=== PATIENT | male | born 1995 | race Caucasian/White ===

== ENCOUNTER 2019-05-02 03:50 | Emergency (ER) | payer OTHER, BC, MEDICAID ==
[2019-05-02] MEDS ORDERED: Ketorolac 60 MG/2 ML SDV IM ONE (04:26)
[2019-05-02] MEDS ORDERED: Cyclobenzaprine 10 MG Tab PO ONE (04:26)
--- NOTE | 2019-05-02 04:33 | EDM.PDOC ---
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 He felt fine when work started to night, but then a couple hours ago the left side of his chest and rib region started to hurt with movement. He did not take any meds. left chest, left lateral ribs Pain Score (Numeric/FACES): 5 - Related Data Allergies Allergy/AdvReac Type Severity Reaction Status Date / Time No Known Allergies Allergy Verified 05/02/19 04:20 Home Meds: Home Meds Albuterol Sulfate [Albuterol Sulfate Hfa] 2 puff INH Q4H PRN 05/02/19 [History] Cyclobenzaprine [Flexeril] 10 mg PO TID PRN #15 tab 05/02/19 [Rx] Review of Systems - Review of Systems Review Of Systems: See Below Constitutional: Reports: No Symptoms Eyes: Reports: No Symptoms Ears: Reports: No Symptoms Nose: Reports: No Symptoms Mouth/Throat: Reports: No Symptoms Respiratory: Reports: No Symptoms Cardiovascular: Reports: Chest Pain GI/Abdominal: Reports: No Symptoms Genitourinary: Reports: No Symptoms Musculoskeletal: Reports: Other (Rib Pain) ED EXAM, GENERAL - Physical Exam Exam: See Below General Appearance: Alert, WD/WN, No Apparent Distress (Young Adult Male) Ears: Hearing Grossly Normal Nose: Normal Inspection Throat/Mouth: Normal Voice, No Airway Compromise Head: Atraumatic, Normocephalic Neck: Normal Inspection Respiratory/Chest: No Respiratory Distress, Lungs Clear, Normal Breath Sounds, Other (+ Tenderness palpated over the left anterior chest wall and anterior rib region) Cardiovascular: Normal Peripheral Pulses, Regular Rate, Rhythm, No Edema, No Murmur GI/Abdominal: Normal Bowel Sounds, Soft, Non-Tender (Male) Exam: Deferred Rectal (Males) Exam: Deferred Back Exam: Normal Inspection, Full Range of Motion Extremities: Normal Inspection, Normal Range of Motion, Normal Capillary Refill Neurological: Alert, Oriented, CN II-XII Intact, Normal Cognition, Normal Reflexes, No Motor/Sensory Deficits Psychiatric: Normal Affect, Normal Mood Skin Exam: Warm, Dry, Intact, Normal Color, No Rash Lymphatic: No Adenopathy EKG INTERPRETATION EKG Date: 05/02/19 Time: 03:53 Rhythm: NSR Rate (Beats/Min): 82 [place]: Normal P-Wave: Present QRS: Normal ST-T: Normal QT: Normal EKG Interpretation Comments: Sinus Rhythm Course - Vital Signs Text/Narrative:: 0425 The patient was seen by the SLEEVE TAILOR. Labs and EKG ordered. Toradol 60 mg IM and Cyclobenzaprine 10mg po ordered for chest wall pain. 0530 Labs reviewed, Pain resolved. Discussed with patient. Discharge instructions given and the patient was sent home in stable condition. Last Recorded V/S: Last Vital Signs Temp 37.0 C 05/02/19 03:50 Pulse 73 05/02/19 05:13 Resp 16 05/02/19 05:13 BP 118/81 05/02/19 05:13 Pulse Ox 97 05/02/19 05:13 - Orders/Labs/Meds Orders: Active Orders 24 hr Category Date Time Status EKG Documentation Completion [RC] STAT Care 05/02/19 04:46 Ordered Labs: Laboratory Tests 05/02/19 05/02/19 05/02/19 Range/Units 04:54 04:54 04:57 WBC 13.9 H (4.0-10.0) x10^3/uL RBC 5.32 (4.5-6.0) x10^6/uL Hgb 15.9 (14.0-18.0) g/dL Hct 45.0 (40.0-52.0) % MCV 84.6 (78.0-93.0) fL MCH 29.9 (26.0-32.0) pg MCHC 35.3 (32.0-36.0) g/dL RDW Coeff of Shonna 13.0 (10.0-15.0) % Plt Count 271 (130-400) x10^3/uL Neut % (Auto) 58.9 (50.0-80.0) % Lymph % (Auto) 26.7 (25.0-50.0) % [place] % (Auto) 10.6 (2.0-11.0) % Eos % (Auto) 3.4 (0.0-4.0) % Baso % (Auto) 0.4 (0.2-1.2) % Sodium 139 (136-145) mmol/L Potassium 3.7 (3.5-5.1) mmol/L Chloride 101 (98-107) mmol/L Carbon Dioxide 26 (21-32) mmol/L Anion Gap 15.7 (10-20) mmol/L BUN 17 (7-18) mg/dL Creatinine 1.1 (0.70-1.30) mg/dL Est Cr Clr Drug Dosing 100.18 mL/min Estimated GFR (MDRD) > 60 Glucose 124 H (74-106) mg/dL Calcium 8.9 (8.5-10.1) mg/dL Corrected Calcium 8.90 (8.5-10.1) mg/dL Total Bilirubin 0.5 (0.2-1.0) mg/dL AST 27 (15-37) U/L ALT 38 (16-63) U/L Alkaline Phosphatase 102 (46-116) U/L POC Troponin I 0.01 (0.00-0.08) ng/mL Total Protein 7.8 (6.4-8.2) g/dL Albumin 4.0 (3.4-5.0) g/dL Globulin 3.8 Albumin/Globulin Ratio 1.05 Meds: Medications Discontinued Medications Generic Name Dose Route Start Last Admin Trade Name Freq PRN Reason Stop Dose Admin Cyclobenzaprine HCl 10 mg 05/02/19 04:26 05/02/19 04:40 Flexeril PO 05/02/19 04:27 10 mg ONETIME ONE Administration Ketorolac Tromethamine 60 mg 05/02/19 04:26 05/02/19 04:42 Toradol IM 05/02/19 04:27 60 mg ONETIME ONE Administration Departure - Departure Time of Disposition: 05:29 Disposition: Home, Self-Care 01 Condition: Good Clinical Impression: Acute chest wall pain, Musculoskeletal chest pain - Discharge Information *PRESCRIPTION DRUG MONITORING PROGRAM REVIEWED*: Not Applicable *COPY OF PRESCRIPTION DRUG MONITORING REPORT IN PATIENT PRAVEENA: Not Applicable Prescriptions: Cyclobenzaprine [Flexeril] 10 mg PO TID PRN #15 tab PRN Reason: Muscle Spasm Instructions: Chest Wall Pain Referrals: PCP,Unobtain [Ordering Only Provider] - Forms: ED Return to Work/School Form Additional Instructions: -Ibuprofen 200mg 3 tablets oral every 6 hours x 5-7 days (Over the counter med) -Acetaminophen 325mg 3 tablets oral every 6 hours as needed (Over the counter med) -Cyclobenzaprine 10mg oral very 8 hours as needed for muscle spasms #15(Rx) -Apply ice/heat to chest/rib region as needed for comfort -Rest. Increase activity as able. -No work for 48 hours, then if you still feel the discomfort follow up with your PCP for further recheck. -Return to the ER as needed Sepsis Event Note - Evaluation Sepsis Screening Result: No Definite Risk - Focused Exam Vital Signs: Vital Signs Temp Pulse Resp BP Pulse Ox 05/02/19 05:13 73 16 118/81 97 05/02/19 03:50 37.0 C 89 20 141/77 H 96 Date Exam was Performed: 05/02/19 Time Exam was Performed: 05:28 - My Orders Last 24 Hours: My Active Orders 05/02/19 04:46 EKG Documentation Completion [RC] STAT - Assessment/Plan Last 24 Hours: My Active Orders 05/02/19 04:46 EKG Documentation Completion [RC] STAT
[2019-05-02 05:23] LABS: CHLORIDE,CL 101 mmol/L (98-107); SODIUM,NA 139 mmol/L (136-145)
[2019-05-02 05:24] LABS: ANION GAP 15.7 mmol/L (10-20)
== END 2019-05-02 05:40 | disposition home or self-care (01) ==
LOC: VM.ED 03:50
DX: R07.89 Other chest pain (principal)
CPT/HCPCS: 36415; 80053; 84484; 85025; 93005; 96372; 99285; A9270; J1885

== ENCOUNTER 2020-06-28 00:48 | Observation (INO) | payer BC, MEDICAID, OTHER ==
[2020-06-28 01:30] LABS: CHLORIDE,CL 105 mmol/L (98-107); SODIUM,NA 142 mmol/L (136-145)
[2020-06-28 01:31] LABS: ACETAMINOPHEN 0 ug/ml (10-30); ANION GAP 14.1 mmol/L (5-15)
[2020-06-28 01:37] LABS: BUPRENORPHINE,URINE NEGATIVE (NEGATIVE); MARIJUANA,URINE POSITIVE (NEGATIVE); METHYLENEDIOXYMETHAMP,UR NEGATIVE (NEGATIVE); PHENCYCLIDINE,URINE NEGATIVE (NEGATIVE)
--- NOTE | 2020-06-28 02:18 | EDM.PDOC ---
ED HPI GENERAL MEDICAL PROBLEM - General Chief Complaint: Behavioral/Psych Time Seen by Provider: 06/28/20 02:03 Source of Information: Reports: Patient, Police - History of Present Illness INITIAL COMMENTS - FREE TEXT/NARRATIVE: Vincent is a 24 y/o male who is brought to the ER for concerns of suicide ideation. Apparently his cat got outside tonight and this caused him a great deal of distress. He does admit to drinking alcohol tonight. He got very upset when the cat got out and called his sister and did start saying some things to her on the phone like he would maybe hurt himself, but he does not think he would ever go through with anything like that. He was previously on antidepressants a couple years ago, but stopped taking them. 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 - Related Data Allergies Allergy/AdvReac Type Severity Reaction Status Date / Time No Known Allergies Allergy Verified 06/28/20 01:23 Past Medical History Respiratory History: Reports: Asthma Psychiatric History: Reports: Depression Social & Family History - Tobacco Use Tobacco Use Status *Q: Never Tobacco User - Alcohol Use Days Per Week of Alcohol Use: 7 Number of Drinks Per Day: 6 Total Drinks Per Week: 42 Date of Last Drink: 06/27/20 Time of Last Drink: 22:00 - Recreational Drug Use Recreational Drug Use: No Review of Systems - Review of Systems Review Of Systems: See Below Constitutional: Reports: No Symptoms Eyes: Reports: No Symptoms Ears: Reports: No Symptoms Nose: Reports: No Symptoms Mouth/Throat: Reports: No Symptoms Respiratory: Reports: No Symptoms Cardiovascular: Reports: No Symptoms GI/Abdominal: Reports: No Symptoms Genitourinary: Reports: No Symptoms Musculoskeletal: Reports: No Symptoms Skin: Reports: No Symptoms Neurological: Reports: No Symptoms Psychiatric: Reports: Depression ED EXAM, GENERAL - Physical Exam Exam: See Below General Appearance: Alert, WD/WN, No Apparent Distress (Adult male, he a bit teary-eyed when talking, but cooperative.) Eye Exam: Bilateral Eye: PERRL Ears: Hearing Grossly Normal Nose: Normal Inspection Throat/Mouth: Normal Inspection, Normal Lips, Normal Voice Head: Atraumatic, Normocephalic Neck: Supple Respiratory/Chest: No Respiratory Distress, Lungs Clear, Chest Non-Tender Cardiovascular: Normal Peripheral Pulses, Regular Rate, Rhythm GI/Abdominal: Normal Bowel Sounds, Soft (Male) Exam: Deferred Rectal (Males) Exam: Deferred Extremities: Normal Inspection, Normal Range of Motion, Normal Capillary Refill Neurological: Alert, Oriented, CN II-XII Intact, Normal Cognition Psychiatric: Depressed Mood, Tearful Skin Exam: Warm, Dry, Intact, Normal Color, No Rash Course - Vital Signs Text/Narrative:: The patient was seen by the AUTO TUNE UP MECHANIC. Labs ordered. Note ECHJ=981. CBC WBC=20.7, CMP neg. UDS +THC. Patient denies plan to hurt himself at this time, but will admit him to observation and have Coding Validator see him in the AM to re-assess after he is sober. Patient cooperative and in agreement to stay at hospital and then be seen in AM after sober. Last Recorded V/S: Last Vital Signs Temp 36.7 C 06/28/20 01:04 Pulse 85 06/28/20 01:04 Resp 18 06/28/20 01:04 BP 120/83 06/28/20 01:04 Pulse Ox 96 06/28/20 01:04 - Orders/Labs/Meds Orders: Active Orders 24 hr Category Date Time Status CORONAVIRUS COVID-19 RAPID [MOLEC] Stat Lab 06/28/20 02:18 Ordered SALICYLATE [REF] Stat Lab 06/28/20 01:05 Received Labs: Laboratory Tests 06/28/20 06/28/20 06/28/20 Range/Units 01:05 01:05 01:36 WBC 20.7 H* (4.0-10.0) x10^3/uL RBC 5.39 (4.5-6.0) x10^6/uL Hgb 16.2 (14.0-18.0) g/dL Hct 46.5 (40.0-52.0) % MCV 86.3 (78.0-93.0) fL MCH 30.1 (26.0-32.0) pg MCHC 34.8 (32.0-36.0) g/dL RDW Coeff of Shonna 13.6 (10.0-15.0) % Plt Count 280 (130-400) x10^3/uL Add Manual Diff Yes Neutrophils % (Manual) 54 (50-80) % Band Neutrophils % 1 (0-6) % Lymphocytes % (Manual) 33 (25-50) % Monocytes % (Manual) 10 (2-11) % Eosinophils % (Manual) 2 (0-4) % Platelet Estimate Adequate Sodium 142 (136-145) mmol/L Potassium 4.1 (3.5-5.1) mmol/L Chloride 105 (98-107) mmol/L Carbon Dioxide 27 (21-32) mmol/L Anion Gap 14.1 (5-15) mmol/L BUN 14 (7-18) mg/dL Creatinine 1.1 (0.70-1.30) mg/dL Est Cr Clr Drug Dosing 92.64 mL/min Estimated GFR (MDRD) > 60 Glucose 96 (70-99) mg/dL Calcium 8.6 (8.5-10.1) mg/dL Corrected Calcium 8.04 L (8.5-10.1) mg/dL Total Bilirubin 0.3 (0.2-1.0) mg/dL AST 25 (15-37) U/L ALT 40 (16-63) U/L Alkaline Phosphatase 90 (46-116) U/L Total Protein 8.7 H (6.4-8.2) g/dL Albumin 4.7 (3.4-5.0) g/dL Globulin 4.0 Albumin/Globulin Ratio 1.18 Urine Opiates Screen Negative (NEGATIVE) Ur Buprenorphine Scrn Negative (NEGATIVE) Ur Oxycodone Screen Negative (NEGATIVE) Ur EDDP (Meth Metab) Negative (NEGATIVE) Urine Methadone Screen Negative (NEGATIVE) Acetaminophen 0 L (10-30) ug/ml Ur Barbituates Screen Negative (NEGATIVE) Ur Tricyclics Screen Negative (NEGATIVE) Ur Phencyclidine Scrn Negative (NEGATIVE) Ur Amphetamines Screen Negative (NEGATIVE) U Methamphetamines Scrn Negative (NEGATIVE) Urine MDMA Screen Negative (NEGATIVE) U Benzodiazepines Scrn Negative (NEGATIVE) Urine Cocaine Screen Negative (NEGATIVE) U Marijuana (THC) Screen Positive H (NEGATIVE) Ethyl Alcohol 256 H (0-3) mg/dL Departure - Departure Time of Disposition: 02:25 Disposition: Refer to Observation Condition: Good Clinical Impression: Suicide ideation Alcohol intoxication Qualifiers: Complication of substance-induced condition: uncomplicated Qualified Code(s): F10.920 - Alcohol use, unspecified with intoxication, uncomplicated - Discharge Information Forms: ED Department Discharge Sepsis Event Note (ED) - Evaluation Sepsis Screening Result: No Definite Risk - Focused Exam Vital Signs: Vital Signs Temp Pulse Resp BP Pulse Ox 06/28/20 01:04 36.7 C 85 18 120/83 96 - My Orders Last 24 Hours: My Active Orders 06/28/20 01:05 SALICYLATE [REF] Stat 06/28/20 02:18 CORONAVIRUS COVID-19 RAPID [MOLEC] Stat - Assessment/Plan Admission H&P: Please use this note as an admission H&P Last 24 Hours: My Active Orders 06/28/20 01:05 SALICYLATE [REF] Stat 06/28/20 02:18 CORONAVIRUS COVID-19 RAPID [MOLEC] Stat Assessment:: 1)Alcohol Intoxication 2)Suicidal Ideation Plan: -Will admit to Observation tonight on Suicide Precautions -Repeat Labs in the AM -Will have Concept Artist see the patient in the AM when he is sober
--- NOTE | 2020-06-28 09:08 | PCM.DCSUM1 ---
Discharge Summary - Hospital Course Free Text/Narrative:: Pt. is feeling better this AM. He is requesting discharge, as he needs to go to work. He adamantly denies any current suicidal or homicidal ideation. He states that he was "overreacting" over the loss of his cat. He denies any problems with depression. He previously had been on antidepressants but stopped taking them some time ago, without complications. Pt. denies any previous suicide attempts in plan in the past. He states that he has many friends, family, and job and looks forward to life. He refuses any referral for mental health at this time. He denies any chest pain, shortness of breath, lightheadedness, fever or chills. Diagnosis: Stroke: No - Discharge Data Discharge Date: 06/28/20 Discharge Disposition: Home, Self-Care 01 Condition: Good - Referral to Home Health Primary Care Physician: PCP None - Discharge Diagnosis/Problem(s) (1) Alcohol intoxication SNOMED Code(s): 93342582 ICD Code: F10.929 - ALCOHOL USE, UNSPECIFIED WITH INTOXICATION, UNSPECIFIED Status: Acute Current Visit: No Qualifiers: Complication of substance-induced condition: uncomplicated Qualified Code(s): F10.920 - Alcohol use, unspecified with intoxication, uncomplicated (2) Suicide ideation SNOMED Code(s): 5289795 ICD Code: R45.851 - SUICIDAL IDEATIONS Status: Acute Current Visit: No - Patient Summary/Data Consults: Consultations 06/28/20 02:43 Consult to Case Management/Analytics Intern [CONS] Routine - Discharge Plan Forms: ED Department Discharge Referrals: PCP,None [Primary Care Provider] - - Discharge Summary/Plan Comment DC Time >30 min.: Yes Discharge Summary/Plan Comment: Pt. contracted for safety. He is anxious to be discharged, as he has to go to work. He was informed to return to ER if he has any acute suicidal ideation. He was given the number for the [facility] crisis line. All questions were answered. - General Info Date of Service: 06/28/20 Functional Status: Reports: Pain Controlled - Review of Systems General: Reports: No Symptoms HEENT: Reports: No Symptoms Pulmonary: Reports: No Symptoms Cardiovascular: Reports: No Symptoms Gastrointestinal: Reports: No Symptoms Genitourinary: Reports: No Symptoms Musculoskeletal: Reports: No Symptoms Skin: Reports: No Symptoms Neurological: Reports: No Symptoms Psychiatric: Reports: Other (See HPI) - Patient Data Vitals - Most Recent: Last Vital Signs Temp 37.0 C 06/28/20 06:00 Pulse 85 06/28/20 06:00 Resp 17 06/28/20 06:00 BP 106/47 L 06/28/20 06:00 Pulse Ox 92 L 06/28/20 06:00 Weight - Most Recent: 76.204 kg I&O - Last 24 hours: Intake & Output 06/27/20 06/28/20 06/28/20 22:59 06:59 14:59 Intake Total 120 Balance 120 Lab Results - Last 24 hrs: Laboratory Results - last 24 hr 06/28/20 06/28/20 06/28/20 Range/Units 01:05 01:05 01:36 WBC 20.7 H* (4.0-10.0) x10^3/uL RBC 5.39 (4.5-6.0) x10^6/uL Hgb 16.2 (14.0-18.0) g/dL Hct 46.5 (40.0-52.0) % MCV 86.3 (78.0-93.0) fL MCH 30.1 (26.0-32.0) pg MCHC 34.8 (32.0-36.0) g/dL RDW Coeff of Shonna 13.6 (10.0-15.0) % Plt Count 280 (130-400) x10^3/uL Add Manual Diff Yes Neutrophils % (Manual) 54 (50-80) % Band Neutrophils % 1 (0-6) % Lymphocytes % (Manual) 33 (25-50) % Monocytes % (Manual) 10 (2-11) % Eosinophils % (Manual) 2 (0-4) % Platelet Estimate Adequate Sodium 142 (136-145) mmol/L Potassium 4.1 (3.5-5.1) mmol/L Chloride 105 (98-107) mmol/L Carbon Dioxide 27 (21-32) mmol/L Anion Gap 14.1 (5-15) mmol/L BUN 14 (7-18) mg/dL Creatinine 1.1 (0.70-1.30) mg/dL Est Cr Clr Drug Dosing 92.64 mL/min Estimated GFR (MDRD) > 60 Glucose 96 (70-99) mg/dL Calcium 8.6 (8.5-10.1) mg/dL Corrected Calcium 8.04 L (8.5-10.1) mg/dL Total Bilirubin 0.3 (0.2-1.0) mg/dL AST 25 (15-37) U/L ALT 40 (16-63) U/L Alkaline Phosphatase 90 (46-116) U/L Total Protein 8.7 H (6.4-8.2) g/dL Albumin 4.7 (3.4-5.0) g/dL Globulin 4.0 Albumin/Globulin Ratio 1.18 Urine Opiates Screen Negative (NEGATIVE) Ur Buprenorphine Scrn Negative (NEGATIVE) Ur Oxycodone Screen Negative (NEGATIVE) Ur EDDP (Meth Metab) Negative (NEGATIVE) Urine Methadone Screen Negative (NEGATIVE) Acetaminophen 0 L (10-30) ug/ml Ur Barbituates Screen Negative (NEGATIVE) Ur Tricyclics Screen Negative (NEGATIVE) Ur Phencyclidine Scrn Negative (NEGATIVE) Ur Amphetamines Screen Negative (NEGATIVE) U Methamphetamines Scrn Negative (NEGATIVE) Urine MDMA Screen Negative (NEGATIVE) U Benzodiazepines Scrn Negative (NEGATIVE) Urine Cocaine Screen Negative (NEGATIVE) U Marijuana (THC) Screen Positive H (NEGATIVE) Ethyl Alcohol 256 H (0-3) mg/dL SARS CoV-2 RNA Rapid GERBER (NEGATIVE) 06/28/20 Range/Units 02:20 WBC (4.0-10.0) x10^3/uL RBC (4.5-6.0) x10^6/uL Hgb (14.0-18.0) g/dL Hct (40.0-52.0) % MCV (78.0-93.0) fL MCH (26.0-32.0) pg MCHC (32.0-36.0) g/dL RDW Coeff of Shonna (10.0-15.0) % Plt Count (130-400) x10^3/uL Add Manual Diff Neutrophils % (Manual) (50-80) % Band Neutrophils % (0-6) % Lymphocytes % (Manual) (25-50) % Monocytes % (Manual) (2-11) % Eosinophils % (Manual) (0-4) % Platelet Estimate Sodium (136-145) mmol/L Potassium (3.5-5.1) mmol/L Chloride (98-107) mmol/L Carbon Dioxide (21-32) mmol/L Anion Gap (5-15) mmol/L BUN (7-18) mg/dL Creatinine (0.70-1.30) mg/dL Est Cr Clr Drug Dosing mL/min Estimated GFR (MDRD) Glucose (70-99) mg/dL Calcium (8.5-10.1) mg/dL Corrected Calcium (8.5-10.1) mg/dL Total Bilirubin (0.2-1.0) mg/dL AST (15-37) U/L ALT (16-63) U/L Alkaline Phosphatase (46-116) U/L Total Protein (6.4-8.2) g/dL Albumin (3.4-5.0) g/dL Globulin Albumin/Globulin Ratio Urine Opiates Screen (NEGATIVE) Ur Buprenorphine Scrn (NEGATIVE) Ur Oxycodone Screen (NEGATIVE) Ur EDDP (Meth Metab) (NEGATIVE) Urine Methadone Screen (NEGATIVE) Acetaminophen (10-30) ug/ml Ur Barbituates Screen (NEGATIVE) Ur Tricyclics Screen (NEGATIVE) Ur Phencyclidine Scrn (NEGATIVE) Ur Amphetamines Screen (NEGATIVE) U Methamphetamines Scrn (NEGATIVE) Urine MDMA Screen (NEGATIVE) U Benzodiazepines Scrn (NEGATIVE) Urine Cocaine Screen (NEGATIVE) U Marijuana (THC) Screen (NEGATIVE) Ethyl Alcohol (0-3) mg/dL SARS CoV-2 RNA Rapid GERBER Negative (NEGATIVE) - Exam General: Reports: Alert, Oriented HEENT: Reports: Pupils Equal, Pupils Reactive, EOMI, Mucous Membr. Moist/[place] Skin: Reports: Warm, Dry, Intact Neurological: Reports: No New Focal Deficit, Normal Speech, Normal Tone, Cranial Nerves Intact Psy/Mental Status: Reports: Alert, Normal Affect, Normal Mood. Denies: Depressed, Suicidal Ideation, Homicidal Ideation, Hallucinations
== END 2020-06-28 09:23 | disposition home or self-care (01) ==
LOC: VM.ED 00:48 → VM.MS 00:49 → VM.ED 02:49
PROVIDERS: ADMIT Nurse Practitioner Family; ATTEND Nurse Practitioner Family
DX: R45.851 Suicidal ideations (principal); F10.920 Alcohol use, unspecified with intoxication, uncomplicated; J45.909 Unspecified asthma, uncomplicated; Z20.822 Contact with and (suspected) exposure to COVID-19
CPT/HCPCS: 36415; 80053; 80143; 80179; 80305-QW; 80307; 85025; 99285; U0002